=== PATIENT | male | born 1955 ===

== ENCOUNTER 2018-01-02 01:57 | Inpatient (IN) | payer BC, OTHER ==
[2016-07-28 17:15] VITALS: Ht 172.7 cm; Wt 94.3 kg
--- NOTE | 2017-12-22 15:25 | HISTORY AND PHYSICAL ---
DATE OF ADMISSION: January 02, 2018 IDENTIFICATION/CHIEF COMPLAINT Alfonzo is 61-year-old gentleman with the chief complaint of right hip pain. HISTORY OF PRESENT ILLNESS Patient has a long-standing history of hip arthritis, progressively painful and debilitating, and refractory to conservative care. Surgery is indicated to relieve symptoms after failure of nonoperative measures. PAST MEDICAL HISTORY * Hypertension controlled on medication. * History of sleep apnea, managed well with CPAP. PAST SURGICAL HISTORY * Right shoulder surgery. * Right foot surgery. * Left shoulder surgery. * Left hand surgery. * Right knee and left knee surgery. * Total left knee replacement. ALLERGIES LEVAQUIN. CURRENT MEDICATIONS * Bystolic one tablet per day. * Lasix one tablet per day. * Cataflam 75 mg p.o. b.i.d. * Allopurinol 300 mg p.o. q.day. SOCIAL HISTORY Negative for tobacco and alcohol use. FAMILY HISTORY Notable for father with coronary artery disease and mother with diabetes. REVIEW OF SYSTEMS Negative. PHYSICAL EXAMINATION GENERAL: This is a well-developed, well-nourished male who appears stated age. HEENT: Normocephalic, atraumatic. NECK: Supple. LUNGS: Clear. HEART: Regular. ABDOMEN: Soft. ORTHOPEDIC EXAM: The right hip is still at limits of rotation. Knee is a few millimeters short compared to the other by gross clinical measurement and his hip girdle strength is normal. Skin envelope is intact. Calves nontender. Neurovascular function is intact. IMAGING Radiographs demonstrate end-stage hip arthritis. ASSESSMENT Right hip degenerative joint disease refractory to conservative care. PLAN Per patient request, we are going to proceed with total hip arthroplasty. The nature of the procedure, risks, benefits, the anticipated rehab course were reviewed. The risks include, but are not limited to , major medical or anesthetic complication, infection, neurovascular injury, blood transfusion, stiffness, scarring, fracture, tendon rupture or instability, leg length discrepancy, implant loosening, migration or failure, persistent or recurrent pain, need for additional surgery and other unforeseen. He understands and wishes to proceed. A signed permit was placed in the chart. No guarantees are given or implied. [facility]
[2018-01-01 15:20] LABS: INR 0.95
[2018-01-02] VITALS (13 sets, daily range): BP systolic 105–129; BP diastolic 64–86
[~2018-01-02] VITALS: Ht 172.7 cm; Wt 94.3 kg
[~2018-01-02 01:57] MED LIST: ALLO-2 PO; ASPI-757 PO; CARI-1 PO; DICL-190 PO; DICL-192 PO; DIPH-741 PO; FURO20TA19 PO; NEBI5TAB PO; OXYC5CAP21 PO; PANT40TA65 PO
[2018-01-02] MEDS ORDERED: fentaNYL CITR 100 MCG/2 ML AMP ONE (07:51)
[2018-01-02] MEDS ORDERED: LIDOCAINE MPF 1% 5 ML VIAL ONE (07:52)
[2018-01-02] MEDS ORDERED: PROPOFOL EMUL(*) 10MG/ML 20 ML 20 ML ONE (07:52)
[2018-01-02] MEDS ORDERED: DEXAMETHASONE SOD PHOS 10MG/ML ONE (07:52)
[2018-01-02] MEDS ORDERED: ONDANSETRON 4 MG/2 ML VIAL ONE (07:52)
[2018-01-02] MEDS ORDERED: CELECOXIB 200 MG CAP PO ONE (09:30)
[2018-01-02] MEDS ORDERED: LIDOCAINE/SOD BICARB 8.4% SYR ID ONE (09:30)
[2018-01-02] MEDS ORDERED: FAMOTIDINE 20 MG TAB PO ONE (09:30)
[2018-01-02] MEDS ORDERED: MIDAZOLAM 2 MG/2 ML VIAL IVP PRN (09:30)
[2018-01-02] MEDS ORDERED: PREGABALIN 150 MG CAPSULE PO ONE (09:30)
[2018-01-02] MEDS ORDERED: TRANEXAMIC AC 1000 MG/10ML SDV 1,000 MG in DEXTROSE 5% 50 ML BAG 50 ML IV ONE (09:30)
[2018-01-02] MEDS ORDERED: ACETAMINOPHEN 500 MG TAB PO ONE (09:30)
[2018-01-02] MEDS ORDERED: NORMOSOL R SOLN(*) 1000 ML BAG 1,000 ML IV PRN ×2 (09:30→13:05)
[2018-01-02] MEDS ORDERED: ceFAZolin(*) 2GM/D5W 50ML 50 ML IVPB ONE (09:30)
[2018-01-02] MEDS ORDERED: cloNIDine EPIDUR INJ 100MCG/ML 40 MCG, ROPIVACAINE 0.5% 20 ML VIAL 25 ML, EPINEPHrine H... INJ ONE (09:30)
[2018-01-02] MEDS ORDERED: ePHEDrine 25 MG/5 ML DISP.SYR IVP ONE ×2 (10:29→11:02)
[2018-01-02] MEDS ORDERED: ROCURONIUM BROM 10 MG/ML 5 ML ONE (11:30)
[2018-01-02] MEDS ORDERED: KETAMINE HCL 200 MG/20 ML MDV ONE (11:44)
[2018-01-02] MEDS ORDERED: SUGAMMADEX SOD 200 MG/2 ML SDV ONE (12:14)
[2018-01-02] MEDS ORDERED: ZOLPIDEM TARTRATE 5 MG TAB PO PRN (13:05)
[2018-01-02] MEDS ORDERED: ACETAMINOPHEN 325 MG TAB PO PRN (13:05)
[2018-01-02] MEDS ORDERED: diphenhydrAMINE 25 MG CAP PO PRN (13:05)
[2018-01-02] MEDS ORDERED: PROMETHAZINE 25 MG/ML 1 ML AMP IVP PRN (13:05)
[2018-01-02] MEDS ORDERED: BENZOCAINE/MENTHOL 1 EACH LOZG PO PRN (13:05)
[2018-01-02] MEDS ORDERED: diphenhydrAMINE 50 MG/ML VIAL IVP PRN (13:05)
[2018-01-02] MEDS ORDERED: BISACODYL 10 MG SUPP PR PRN (13:05)
[2018-01-02] MEDS ORDERED: FLUSH 10 ML SYR IVP PRN (13:05)
[2018-01-02] MEDS ORDERED: MAGNESIUM HYDROXIDE* 30ML UDCP PO PRN (13:05)
--- NOTE | 2018-01-02 13:34 | RADIOLOGY IMAGING REPORT ---
FACILITY: [facility] PATIENT NAME: Yadira Hernandez : 1955 MR: [id number] V: [id number] EXAM DATE: ORDERING PHYSICIAN: YADIRA RAY TECHNOLOGIST: Location: [facility] - [place] Patient: Yadira Hernandez : 1955 Visit/Account:[id number] Date of Sevice: 01/02/2018 PELVIS History: Postop right hip. Comparison study: None. Findings: There has been recent replacement of the right hip prosthesis. Subcutaneous and intra-art icular air reflect recent surgery. There are findings of osteoarthrosis involving the left hip. Sacroiliac joints are unremarkable. There is no fracture. IMPRESSION: Status post recent right total hip replacement. Osteoarthrosis of the left hip. Report Dictated By: Hay Walters MD at 01/02/2018 1:29 PM Report E-Signed By: Hay Walters MD at 01/02/2018 1:30 PM WSN:SERAFIN-MENDOZA
[2018-01-02] MEDS: APAP/HYDROCODONE 325/7.5 TAB PO PRN ×2 (14:53→20:13)
--- NOTE | 2018-01-02 15:05 | Hospitalist Consultation ---
History of Present Illness Requesting Physician Dr. Aguayo Reason for Consult Medication Management Chief Complaint s/p right total hip replacement History of Present Illness He was admitted s/p right total hip replacement. It was reported the surgery went well and without complication. History Problems: (1) HTN (hypertension) Status: Chronic (2) GERD (gastroesophageal reflux disease) Status: Chronic (3) Gout Status: Chronic (4) KENNETH (obstructive sleep apnea) Status: Chronic Home Meds Active Scripts Aspirin (ASPIRIN) 325 Mg Tablet, 325 MG PO QDAY for 30 Days, Take for 30 days after surgery for blood clot prevention Prov:HYACINTH PANIAGUA MD 07/29/16 Reported Medications Diclofenac Sodium (DICLOFENAC SODIUM) 50 Mg Tablet.dr, 50 MG PO TID, TAB 12/26/17 Pantoprazole Sodium (PANTOPRAZOLE SODIUM) 40 Mg Tablet.dr, 40 MG PO QDAY, TAB.SR 07/27/16 Diphenhydramine Hcl (BENADRYL ALLERGY) 25 Mg Tablet, 25 MG PO Q6-8H Y for ALLERGY SYMPTOMS, TAB 07/19/16 Carisoprodol (SOMA) 350 Mg Tablet, 350 MG PO QID Y for PAIN, TAB 07/19/16 Allopurinol (Allopurinol) 300 Mg Tablet, 300 MG PO DAILY 07/19/16 Furosemide (LASIX) 20 Mg Tablet, 1 TAB PO DAILY, TAB 07/19/16 Nebivolol Hcl (BYSTOLIC) 5 Mg Tablet, 5 MG PO DAILY 07/19/16 Allergies: Coded Allergies: levofloxacin (Verified Allergy, Mild, NAUSEA, 12/26/17) Uncoded Allergies: HAYFEVER (Allergy, Mild, SINUS CONGESTION, 07/19/16) Patient History: FH: ND (myocardial infarction) FATHER FH: diabetes mellitus MOTHER Hx Smoking: No Smoking Status: Never Smoker Exposure to Second Hand Smoke?: No When Quit Tobacco?: > 40 YRS AGO CHEWED AGE 12-27 Caffeine Intake: Coffee Caffeine/Cups Per Day: 4-5 CUPS COFFEE PER DAY Hx Alcohol Use: Yes Hx Substance Use Disorder: No Social Drug Use: Never Review of Systems All Systems Reviewed/Normal: Yes, Except as Noted Exam Vital Signs Vital Signs Date Time Temp Pulse Resp B/P (MAP) Pulse Ox O2 Delivery O2 Flow Rate FiO2 01/02/18 13:59 95 Nasal Cannula 1.0 01/02/18 13:55 97.6 62 16 111/68 (82) General Appearance: Alert, Awake, No Acute Distress, Afebrile Neuro: No Gross deficits Cardiovascular: Regular Rate and Rhythm Respiratory: No Respiratory Distress, Clear to Auscultation GI: Abd Soft and Non-Tender Extremities: Perfused, No Edema Psych: Alert & Oriented X3, Appropriate Mood & Affect Assessment and Plan Problems: (1) Status post total hip replacement, right Status: Acute Assessment & Plan: Followed by Dr. Aguayo. He will be placed on Aspirin 325mg daily for DVT prophylaxis. (2) HTN (hypertension) Status: Chronic Assessment & Plan: He is on chronic treatment with Bystolic and Lasix. Both medications were restarted with hold parameters. (3) GERD (gastroesophageal reflux disease) Status: Chronic Assessment & Plan: He is on chronic treatment with Protonix. (4) Gout Status: Chronic Assessment & Plan: He is on chronic treatment with Allopurinol. (5) KENNETH (obstructive sleep apnea) Status: Chronic Assessment & Plan: He is on chronic treatment with CPAP. He brought his machine to use [employer]. Venous Thromboembolism Antithrombotics Is Pt On Any Antithrombotics?: No Exam Sepsis Risk: No Definite Risk Problem Qualifiers (1) HTN (hypertension): Hypertension type: essential hypertension Qualified Codes: I10 - Essential ( primary) hypertension RENETTA STOVALLP January 02, 2018 15:05
[2018-01-02] MEDS: CELECOXIB 200 MG CAP PO SCH (17:32)
[2018-01-02] MEDS: CEFAZOLIN PREM 1 GM/D5W 50 ML 50 ML IVPB SCH (17:32)
[2018-01-02] MEDS: DIAZEPAM 5 MG TAB PO PRN (19:03)
--- NOTE | 2018-01-02 21:05 | OPERATIVE REPORT 1 ---
EVENT DATE: January 02, 2018 SURGEON: Lauro Aguayo MD ANESTHESIOLOGIST: Reynaldo Lau MD ANESTHESIA: General plus spinal. ALLERGY NURSE: Cuco Centeno PA-C PREOPERATIVE DIAGNOSIS Right hip degenerative joint disease. POSTOPERATIVE DIAGNOSIS Right hip degenerative joint disease. PROCEDURE PERFORMED Right total hip arthroplasty. ESTIMATED BLOOD LOSS 200 mL DRAINS None. SPECIMENS None. COMPLICATIONS None apparent. IMPLANTS USED [place] system with a SecurFit 127 neck angle, size 9 stem, a 36 mm, -2.5 Biolox Ceramic C-taper femoral head, a 52 Trident PSL cluster acetabular shell with a zero-degree X3 polyethylene liner to accommodate a 36 mm head. INDICATIONS Alfonzo has intractable pain related to end-stage hip arthritis. Surgery is indicated to relieve symptoms after failure of nonoperative measures. DESCRIPTION OF PROCEDURE Patient was taken to the operating room and placed supine on the operating table. Spinal block was administered by the anesthesiologist. General anesthesia induced. Antibiotics and TXA are administered IV. Patient is positioned in the left lateral decubitus position with his pelvis secured in a vertical position on a well-padded pegboard. All bony prominences and superficial nerves are well padded. The right hip girdle and lower extremity are prepped and draped in the usual sterile fashion for hip arthroplasty. A small incision in the posterolateral approach is made and carried down through the skin and subcutaneous tissue to the deep fascia. Fascia is incised over the tip of the trochanter, extended distally and laterally over the femur and proximal and laterally over the moises fibers. Moises fibers are split bluntly. Trochanteric bursa is excised. The interval between the abductor and external rotators is identified. Abductor mechanism is protected with a blunt Hohmann. An L capsulotomy/tenotomy is made with the horizontal limb just above the piriformis. The piriformis and the capsule are peeled off the back of the femur, and the flap is tagged with #2 Vicryl for later anatomic reapproximation. Femoral head is dislocated. End-stage arthritic change is noted. A 12 mm cut is made consistent with preoperative templating. Femoral head is extracted. Femur is translocated anteriorly. Periacetabular retractor is placed with the tips down on bone. The 44 mm reamer is used to medialize the true medial wall of the acetabulum. It is expanded in 2 mm increments up to 52 where nice rim contact is obtained. The 52 has nice [id number]-he-ewcp fit with a trial. A 53 is used to open the floor of the acetabulum. Surfaces are copiously lavaged. The actual shell is impacted in approximately 40 degrees of lateral opening and 15 degrees of anteversion using the extracorporeal guide, internal bony landmarks, and the transverse acetabular ligament to guide socket placement. Rock-solid fixation is achieved. No adjuvant fixation is felt to be needed. Shell is lavaged and dried, and the liner is impacted into position. Superior neck of the femur is resected with a [employer] cutter. A Marimar awl finds the canal. Tapered reaming is performed up to 9 where nice endosteal contact is obtained. Broaching starts at 7 and works up to 9, taking care to lateralize and follow the [place] version of the neck at about 12 to 15 degrees of anteversion. The 9 broach has nice fit and fill. Trial reduction is performed off this. Good synagogue of soft tissue tension and stability is achieved, particularly after removal of some impinging osteophytes. The broach is extracted. The actual stem is seated and seats nicely. Trial reduction is performed with various neck lengths. The -2.5 is felt to be optimal for synagogue of soft tissue tension, limb length, and stability. Portillo taper is lavaged and dried. The actual head is impacted in position. The joint is reduced. Drill holes are made posteriorly through the bone and the trochanter to reattach the capsule and external rotators. Wound is copiously lavaged. Pain cocktail infiltrated throughout. Deep fascia closed distally with #2 Ethibond, proximally with #2 Vicryl, the subcutaneous tissue with 3-0 Vicryl, skin with surgical nigel, Xeroform and 4 x 4's applied as a dry, sterile dressing, and a hip wrap. Patient rolled supine. Abduction pillow is placed. He is awakened from anesthesia and taken to the recovery room in stable condition having tolerated the procedure well. Plan is for standard [facility] rehab protocol. Weightbearing as tolerated. MTDD
[2018-01-03 00:13] VITALS: BP 111/67
[2018-01-03] MEDS: CEFAZOLIN PREM 1 GM/D5W 50 ML 50 ML IVPB SCH ×2 (01:36→10:00)
[2018-01-03] MEDS: APAP/HYDROCODONE 325/7.5 TAB PO PRN ×2 (01:39→06:55)
[2018-01-03 03:08] VITALS: BP 129/81
[2018-01-03 04:26] VITALS: BP 110/59
[2018-01-03] MEDS: DIAZEPAM 5 MG TAB PO PRN (04:37)
[2018-01-03 06:51] VITALS: BP 115/75
[2018-01-03] MEDS ORDERED: HYDR-4308 PO (07:27)
[2018-01-03] MEDS: CELECOXIB 200 MG CAP PO SCH (08:19)
[2018-01-03] MEDS ORDERED: NEBIVOLOL HCL 5 MG TAB PO SCH (09:00)
[2018-01-03] MEDS ORDERED: PANTOPRAZOLE SOD 40 MG TABEC PO SCH (09:00)
[2018-01-03] MEDS ORDERED: ALLOPURINOL 300 MG TAB PO SCH (09:00)
[2018-01-03] MEDS ORDERED: FUROSEMIDE 20 MG TAB PO SCH (09:00)
[2018-01-03] MEDS ORDERED: ASPIRIN 325 MG TAB PO SCH (09:00)
[2018-01-03] MEDS ORDERED: CELE-1 PO (09:21)
--- NOTE | 2018-01-03 09:27 | Hospitalist Progress Note ---
Subjective Progress Notes Subjective He has no concerns this morning. He states he is ready to go home. Patient Complains of: Cardiovascular: No: Chest Pain Respiratory: No: Shortness of Breath Physical Exam Vital Signs Date Time Temp Pulse Resp B/P (MAP) Pulse Ox O2 Delivery O2 Flow Rate FiO2 01/03/18 06:51 98.4 78 16 115/75 (88) 95 Room Air 01/03/18 03:08 1.5 General Appearance: Alert, Awake, No Acute Distress, Afebrile Neuro: No Gross deficits Cardiovascular: Regular Rate and Rhythm Respiratory: No Respiratory Distress, Clear to Auscultation GI: Soft and Non-Tender Extremities: Perfused, No Edema Psych: Alert & Oriented X3 Assessment and Plan Problems: (1) Status post total hip replacement, right Status: Acute Assessment & Plan: Followed by Dr. Aguayo. He will be placed on Aspirin 325mg daily for DVT prophylaxis. (2) HTN (hypertension) Status: Chronic Assessment & Plan: He is on chronic treatment with Bystolic and Lasix. (3) GERD (gastroesophageal reflux disease) Status: Chronic Assessment & Plan: He is on chronic treatment with Protonix. (4) Gout Status: Chronic Assessment & Plan: He is on chronic treatment with Allopurinol. (5) KENNETH (obstructive sleep apnea) Status: Chronic Assessment & Plan: He is on chronic treatment with CPAP. (6) Arthritis Status: Chronic Assessment & Plan: He has chronic lower back arthritis, which he uses Diclofenac for three times daily. With the use of aspirin for the next 30 days, I have switched the patient to Celebrex to use daily while he is on Aspirin and he will stop Diclofenac. Exam Sepsis Risk: No Definite Risk Problem Qualifiers (1) HTN (hypertension): Hypertension type: essential hypertension Qualified Codes: I10 - Essential ( primary) hypertension RENETTA STOVALLP January 03, 2018 09:27
== END 2018-01-03 09:45 | disposition home or self-care (01) | DRG 470 ==
LOC: OR 01:57 → MED 13:50
PROVIDERS: ADMIT Orthopaedic Surgery; ATTEND Orthopaedic Surgery
PROC: 0SR904A Replacement of Right Hip Joint with Ceramic on Polyethylene Synthetic Substitute, Uncemented, Open Approach (ICD-10-PCS; principal; 2018-01-02 10:17)
DX: M16.11 Unilateral primary osteoarthritis, right hip (principal); I10 Essential (primary) hypertension; K21.9 Gastro-esophageal reflux disease without esophagitis; M1A.9XX0 Chronic gout, unspecified, without tophus (tophi); G47.33 Obstructive sleep apnea (adult) (pediatric); G89.29 Other chronic pain; Z96.652 Presence of left artificial knee joint; Z88.8 Allergy status to other drugs, medicaments and biological substances
CPT/HCPCS: 36415; 72170; 85610; 86850; 86900; 86901; 97161; 97165; C1776; J0171; J0690; J0735; J1100; J1885; J2001; J2250; J2405; J2704; J2795; J3010; J3490; J7050; J7060